=== PATIENT | female | born 1990 | race Hispanic/Latino ===

== ENCOUNTER 2019-09-15 18:52 | Emergency (ER) | payer OTHER, SELFPAY ==
--- NOTE | 2019-09-15 18:58 | ED.URI ---
HPI - URI/Sore Throat General Chief Complaint: Upper Respiratory Infection Stated Complaint: sore throat Time Seen by Provider: 09/15/19 19:06 Source: patient and RN notes reviewed Mode of arrival: ambulatory Limitations: no limitations History of Present Illness HPI Narrative: 29-year-old female presents with concern for sore throat, left ear pain that started on Saturday. She reports a fever on Saturday. Denies cough, nasal congestion, rhinorrhea, body aches, shortness of breath. Reports headache. MD elicited complaint: sore throat Related Data Allergies Allergy/AdvReac Type Severity Reaction Status Date / Time No Known Allergies Allergy Unknown Unverified 09/15/19 19:06 Review of Systems Review of Systems: Narrative: CONSTITUTIONAL: Denies malaise, chills, sweats, or fever. EYES: Denies visual changes, redness, or discharge. ENT: Denies rhinorrhea, congestion, sinus pain, otalgia. Reports sore throat. CARDIOVASCULAR: Denies chest pain, palpitations, or edema. RESPIRATORY: Denies cough or dyspnea. GASTROINTESTINAL: Denies abdominal pain, nausea, vomiting, diarrhea SKIN: Denies rash or itching. MUSCULOSKELETAL: Denies myalgia. NEUROLOGIC: Denies headache. All systems reviewed & are unremarkable except as noted in HPI and below PMFSH Comments At time of signature, agree with nursing past medical, surgical, social and family history. There is no relevant family history pertinent to the presenting complaint Exam Narrative: Exam Narrative: GENERAL: Well-appearing, well-nourished, and in no acute distress. HEAD: Normocephalic EYES: PERRLA, conjunctivae clear ENT: Nares clear, turbinates edematous and erythematous, clear discharge. Mucous membranes moist. TM pearly peña with dull light reflex bilaterally; no tragal tenderness. Oropharynx erythematous without lesions. Tonsils enlarged and without exudate, no drooling, no hoarseness, no trismus, uvula midline. NECK: Supple. No lymphadenopathy CHEST: Clear to auscultation, breath sounds equal. No wheezing, rhonchi, rales, or stridor. No respiratory distress, speaks in full sentences. HEART: Regular rate and rhythm. No murmur heard. SKIN: Warm, dry, no rash. NEURO: Alert and oriented x3. PSYCH: Normal mood and affect Course Course Emergency Course: Patient is aware of diagnosis, understands and agrees to treatment plan. Anticipatory guidance given. Patient agrees to follow-up as directed and is aware of reasons to seek care at the emergency department. Portions of this record may have been created with voice recognition software Vital Signs Vital signs: Vital Signs Temperature 99.6 F 09/15/19 19:03 Pulse Rate 84 09/15/19 19:03 Respiratory Rate 16 09/15/19 19:03 Blood Pressure 117/75 09/15/19 19:03 Pulse Oximetry 100 09/15/19 19:03 Temperature 99.6 F 09/15/19 19:03 Pulse Rate 84 09/15/19 19:03 Respiratory Rate 16 09/15/19 19:03 Blood Pressure 117/75 09/15/19 19:03 Pulse Oximetry 100 09/15/19 19:03 Reviewed. MDM - URI/Sore Throat MDM Narrative Medical decision making narrative: Differential diagnosis considered: Strep pharyngitis, allergic rhinitis, upper respiratory tract infection, sinusitis, rhinosinusitis, nasopharyngitis. viral pharyngitis, otitis media, otitis externa, pneumonia, bronchitis, viral cough syndrome, viral syndrome, and influenza. Exam findings show no acute concerns or changes; patient is non-toxic appearing and is in no distress. Patient is appropriate for outpatient treatment and follow-up. Lab Data Attestation: I reviewed the patient's lab results. Labs: Strep Screen Positive Group A Strep *(Reference Range: Negative)* Critical Care Time Critical Care Time Critical Care Time: No Discharge Plan Discharge Clinical Impression: Acute streptococcal pharyngitis Patient Disposition: Home, Self-Care Condition: Stable Instructions: Antibiotic Form, Strep Throat (ED) Addition
[2019-09-15 19:03] VITALS: BP 117/75; PULSE 84; RESP 16; TEMP 37.6; O2SAT 100
== END 2019-09-15 19:17 | disposition home or self-care (01) ==
PROVIDERS: Emergency Provider Nurse Practitioner
DX: J02.0 Streptococcal pharyngitis (principal)
CPT/HCPCS: 87880; 99213; G0463

== ENCOUNTER 2019-12-28 18:38 | Emergency (ER) | payer MEDICAID, SELFPAY ==
--- NOTE | ~2019-12-28 | XR_ITS ---
EXAMINATION: XR chest 1V portable DATE: 12/28/2019 19:40 INDICATION: Fever. Cough. TECHNIQUE: A single frontal view of the chest was obtained. COMPARISON: CT abdomen and pelvis 07/12/2015 FINDINGS: The chest demonstrates clear lungs without pneumonia, pleural effusion, or pneumothorax. Th e heart size is normal. IMPRESSION: 1. No acute cardiopulmonary disease. Reviewed, dictated and finalized at location A. K FAKER
[2019-12-28 18:49] VITALS: BP 124/87; PULSE 86; RESP 18; TEMP 36.2; O2SAT 99
[2019-12-28 19:12] VITALS: RESP 16; O2SAT 98
--- NOTE | 2019-12-28 19:41 | ED.GENADULT ---
HPI - General Adult General Chief complaint: Fever Stated complaint: fever, headache, body aches Time Seen by Provider: 12/28/19 19:12 Source: patient History of Present Illness HPI narrative: Patient is a 29 y/o female complaining of fever, cough and body ache for last 2 days. She states that her fever was 102 yesterday. She took Ibuprofen, which helps with her fever. She has some headache, nausea and vomiting. She denies any dysuria. She denies any stiffness. Related Data Home Medications Medication Instructions Recorded Confirmed No Home Medications 12/28/19 12/28/19 Allergies Allergy/AdvReac Type Severity Reaction Status Date / Time No Known Allergies Allergy Unknown Verified 12/28/19 18:51 Review of Systems Constitutional: Constitutional: Denies chills, Reports fever(s), Reports headache(s) and Denies weakness Eyes: Eyes: Denies blurry vision ENT: Reports headache(s) and Denies neck pain Cardiovascular: Cardiovascular: Denies chest pain and Denies dyspnea Respiratory: Respiratory: Reports cough and Denies dyspnea Gastrointestinal: Gastrointestinal: Denies abdominal pain, Denies diarrhea, Reports nausea and Reports vomiting Genitourinary: Genitourinary: Denies hematuria and Denies dysuria Musculoskeletal: Musculoskeletal: Denies back pain and Denies neck pain Neurologic: Reports headache(s) and Denies weakness [facility] Social History Social History Gender identity (if verbalized by the patient): Female Exam Const: General: no acute distress and well developed Orientation/consciousness: oriented to person, oriented to place, oriented to time and patient oriented x3 HENMT: Head: normocephalic Ears: external ears normal General nose exam: Normal external nose present Eyes: General: appearance normal, both eyes and all related structures Conjunctivae: conjunctivae normal Neck: Neck: normal visual inspection and full ROM Chest: Chest palpation & inspection: normal inspection of the chest and no tenderness Resp: Effort & Inspection: normal respiratory effort Auscultation: clear to auscultation bilaterally Cardio: Rate: regular rate Rhythm: regular rhythm GI: GI Palp: No abdominal tenderness and Yes Soft to palpation Skin: General skin exam: normal color and turgor normal Neuro: General: oriented to person, oriented to place, oriented to time and patient oriented x3 Cognition (Neuro): normal cognition Extrem: General: normal to inspection, full ROM and no pedal edema Psych: Appearance: grossly normal Mental Status: mental status grossly normal Affect: normal affect Course Vital Signs Vital signs: Vital Signs Temperature 36.2 C L 12/28/19 18:49 Pulse Rate 86 12/28/19 18:49 Respiratory Rate 18 12/28/19 18:49 Blood Pressure 124/87 12/28/19 18:49 Pulse Oximetry 99 12/28/19 18:49 Temperature 36.9 C 12/28/19 22:51 Pulse Rate 76 12/28/19 22:51 Respiratory Rate 18 12/28/19 22:51 Blood Pressure 120/85 12/28/19 22:51 Pulse Oximetry 100 12/28/19 22:51 Medical Decision Making Vital Signs Vital Signs: Vital Signs Temperature 36.2 C L 12/28/19 18:49 Pulse Rate 86 12/28/19 18:49 Respiratory Rate 18 12/28/19 18:49 Blood Pressure 124/87 12/28/19 18:49 Pulse Oximetry 99 12/28/19 18:49 Temperature 36.9 C 12/28/19 22:51 Pulse Rate 76 12/28/19 22:51 Respiratory Rate 18 12/28/19 22:51 Blood Pressure 120/85 12/28/19 22:51 Pulse Oximetry 100 12/28/19 22:51 Lab Data Result diagrams: 12/28/19 22:01 12/28/19 22:01 Labs: Lab Results 12/28/19 12/28/19 12/28/19 Range/Units 20:21 20:21 22:01 WBC (4.5-10.0) K/mm3 RBC (4.2-5.4) M/mm3 Hgb (12.0-15.0) g/dL Hct (37.0-47.0) % MCV (80-100) fl MCH (26-34) pg MCHC (32-36) g/dl RDW (11.5-14.5) % Plt Count (150-375) k/mm3 MPV (7.4-10.4) fl
[2019-12-28 20:34] LABS: Add Urine Microscopic? YES; Appearance Urine Clear (Clear); Bacteria Urine Trace /hpf; Bilirubin Urine Negative (Negative); Blood Urine 1+ (Negative); Color Urine Yellow (Yellow); Glucose Urine UA Negative (Negative); Ketones Urine Trace mg/dL (Negative); Leukocyte Esterase Ur Negative LEU/UL (Negative); Mucus Urine Moderate /lpf; Nitrate Urine Negative (Negative); Protein Urine 1+ mg/dL (Negative); Squamous Epithelial Cell Urine Moderate /hpf (Few); Urobilinogen Urine Negative mg/dL (<2.0); WBC Urine 0-3 /hpf
[2019-12-28] MEDS: SODIUM CHLORIDE 0.9% IV 1,000 ML 999 ML IV CONT (20:34)
[2019-12-28] MEDS: ONDANSETRON INJ 4 MG/2 ML VIAL IV PUSH (20:35)
[2019-12-28 22:11] LABS: Basophils Percent Auto 0.2 % (0.2-1.2); Hematocrit 45.1 % (37.0-47.0); Hemoglobin 15.2 g/dL (12.0-15.0); Immature Granulocyte Absolute 0.01 K/mm3 (0.00-0.031); Immature Granulocyte Percent A 0.2 % (0-0.5); Lymphocytes Absolute Auto 1.95 K/mm3 (0.9-3.2); Lymphocytes Percent Auto 39.6 % (18.3-44.2); Mean Corpuscular HGB Conc 33.7 g/dl (32-36); Mean Corpuscular Hemoglobin 28.7 pg (26-34); Mean Corpuscular Volume 85.1 fl (80-100); Mean Platelet Volume 9.9 fl (7.4-10.4); Monocytes Absolute Auto 0.6 K/mm3 (0.1-0.6); Monocytes Percent Auto 12.8 % (2.6-8.5); Neutrophils Absolute Auto 2.3 K/mm3 (1.3-6.7); Neutrophils Percent Auto 47.2 % (45.5-73.1); Platelet Count Result 247 k/mm3 (150-375); Red Cell Distribution Width 11.9 % (11.5-14.5); White Blood Count 4.9 K/mm3 (4.5-10.0)
[2019-12-28 22:22] LABS: Lactic Acid Reflex 0.9 mmol/L (0.7-2.1)
[2019-12-28 22:27] LABS: Alanine Aminotransferase 34 U/L (4-35); Albumin Level 4.6 g/dL (3.5-5.1); Alkaline Phosphatase 85 U/L (38-126); Anion Gap 10 mmol/L (8-16); Aspartate Amino Transferase 41 U/L (14-36); Bilirubin,Total 0.2 mg/dL (0.2-1.3); Blood Urea Nitrogen 11 mg/dL (7-17); Calcium 9.2 mg/dL (8.4-10.2); Carbon Dioxide 26 mmol/L (22-30); Chloride 103 mmol/L (98-107); Estimated CRCL calculation 111 ml/min; Estimated Glomerular Filt Rate > 60; Glucose 102 mg/dL (65-105); Potassium 3.5 mmol/L (3.4-5.0); Sodium 139 mmol/L (137-145)
[2019-12-28] MEDS: KETOROLAC 30 MG/ML VIAL (*BKC) IV PUSH (22:50)
[2019-12-28] MEDS: diphenhydrAMINE HCl INJ 50 MG/ML VIAL 25 MG IV PUSH (22:50)
[2019-12-28 22:51] VITALS: BP 120/85; PULSE 76; RESP 18; TEMP 36.9; O2SAT 100
[2019-12-30 18:20] LABS: SARS-CoV-2 RNA PCR Positive
== END 2019-12-28 23:07 | disposition home or self-care (01) ==
PROVIDERS: Emergency Provider Emergency Medicine
DX: U07.1 COVID-19 (principal); R50.9 Fever, unspecified; R51.9 Headache, unspecified
CPT/HCPCS: 36415; 71045; 80053; 81001; 81025; 83605; 85025; 87040; 87635; 87804; 96361; 96374; 96375; 99284; C9803; J1200; J1885; J2405; J7030; U0003

== ENCOUNTER 2020-10-29 02:47 | Emergency (ER) | payer OTHER, SELFPAY ==
[2020-10-29] VITALS (9 sets, daily range): BP systolic 90–121; BP diastolic 55–81; PULSE 75–85; RESP 14–24; TEMP 36.6; O2SAT 99–100
--- NOTE | ~2020-10-29 | XR_ITS ---
EXAMINATION: XR chest 2V DATE: 10/29/2020 04:31 INDICATION: Sternal chest pain TECHNIQUE: PA and lateral views of the chest were obtained. COMPARISON: Chest radiograph dated 12/28/2019 FINDINGS: The lungs remain clear with no focal airspace opacities, pulmonary edema, pleural effusion or pneumot horax. The cardiomediastinal silhouette is normal. Visualized bones and soft tissues are unremarkable . IMPRESSION: 1. No acute cardiopulmonary disease. Reviewed, dictated and finalized at location A.
--- NOTE | 2020-10-29 02:48 | ECG_ITS ---
Measurements Intervals [place] Rate: 82 P: 15 FL: 163 QRS: 3 QRSD: 82 T: 8 QT: 350 QTc: 411 Interpretive Statements SINUS RHYTHM BASELINE ARTIFACT- I, II NORMAL ECG Electronically Signed On 10-29-2020 6:36:13 CDT by Moreno Rayo D.O.
[2020-10-29 03:25] LABS: Basophils Percent Auto 0.4 % (0.2-1.2); Eosinophils Absolute Auto 0.1 K/mm3 (0-0.3); Eosinophils Percent Auto 1.4 % (0-4.4); Hematocrit 34.5 % (37.0-47.0); Hemoglobin 11.4 g/dL (12.0-15.0); Immature Granulocyte Absolute 0.07 K/mm3 (0.00-0.031); Immature Granulocyte Percent A 0.7 % (0-0.5); Lymphocytes Absolute Auto 2.89 K/mm3 (0.9-3.2); Mean Corpuscular Hemoglobin 26.6 pg (26-34); Mean Corpuscular Volume 80.4 fl (80-100); Mean Platelet Volume 8.9 fl (7.4-10.4); Monocytes Absolute Auto 1.1 K/mm3 (0.1-0.6); Monocytes Percent Auto 10.9 % (2.6-8.5); Neutrophils Absolute Auto 5.8 K/mm3 (1.3-6.7); Neutrophils Percent Auto 57.6 % (45.5-73.1); Platelet Count Result 322 k/mm3 (150-375); Red Blood Count 4.29 M/mm3 (4.2-5.4); Red Cell Distribution Width 12.3 % (11.5-14.5)
[2020-10-29 03:33] LABS: INR 0.9; Prothrombin Time 11.8 Seconds (11.1-14.7)
[2020-10-29 03:34] LABS: Partial Thromboplastin Time 25.8 SECONDS (22.3-36.8)
[2020-10-29 03:44] LABS: Anion Gap 7 mmol/L (8-16); Blood Urea Nitrogen 7 mg/dL (7-17); Calcium 8.9 mg/dL (8.4-10.2); Carbon Dioxide 17 mmol/L (22-30); Chloride 109 mmol/L (98-107); Estimated CRCL calculation 166 ml/min; Estimated Glomerular Filt Rate > 60; Glucose 109 mg/dL (65-110); Potassium 3.7 mmol/L (3.4-5.0); Sodium 133 mmol/L (137-145)
[2020-10-29 03:54] LABS: Troponin I < 0.012 ng/mL (0.000-0.034)
--- NOTE | 2020-10-29 04:07 | PC.NURSE ---
Pt is painfree at present. Remains SR without ectopy. Offered and given blanket. Updated on pending labs. Denies further needs at present.
--- NOTE | 2020-10-29 04:45 | ED.CHESTPAIN ---
HPI - Chest Pain General Chief Complaint: Chest Pain Stated Complaint: chest pain Time Seen by Provider: 10/29/20 04:16 History of Present Illness HPI narrative: Patient presents with sternal chest pain. Patient reports chest pain woke her up from sleep just prior to arrival and has been gradually improving. She was concerned given the initial severity of her pain so she came in for evaluation. She reports chest pain was associated with shortness of breath she denies any lightheadedness or dizziness she denies any abdominal pain nausea or vomiting. She denies any significant family history of cardiac disease. She denies prior history of blood clots Related Data Home Medications Medication Instructions Recorded Confirmed No Home Medications 10/29/20 10/29/20 Allergies Allergy/AdvReac Type Severity Reaction Status Date / Time No Known Allergies Allergy Unknown Verified 10/29/20 02:57 Review of Systems Review of Systems: CONSTITUTIONAL: Denies fever, chills, or sweats. EYES: Denies visual changes, redness, or discharge. ENT: Denies rhinorrhea, congestion, sore throat, or otalgia. CARDIOVASCULAR: Denies palpitations, or edema. RESPIRATORY: Denies cough GASTROINTESTINAL: Denies abdominal pain, nausea, vomiting, or diarrhea. GENITOURINARY: Denies dysuria or hematuria. SKIN: Denies rash or itching. MUSCULOSKELETAL: Denies back pain, joint pain, or myalgia. NEUROLOGIC: Denies headache, numbness, dizziness, or weakness. PSYCHIATRIC: Denies anxiety or depression. All systems reviewed & are unremarkable except as noted in HPI and below PMFSH Social History Social History Gender identity (if verbalized by the patient): Female Exam Narrative: GENERAL: Well-appearing, well-nourished, and in no acute distress. HEAD: Normocephalic, atraumatic. EYES: PERRLA and EOMI. ENT: Nares clear, no rhinorrhea or epistaxis. Mucous membranes moist. NECK: Supple. No masses. No JVD CHEST: Clear to auscultation. No respiratory distress. No wheezes rales or rhonchi HEART: Regular rate and rhythm. No murmur heard. Normal peripheral pulses. ABDOMEN: Soft, nontender, nondistended, normal active bowel sounds. EXTREMITIES: Normal range of motion. No edema. SKIN: Warm, dry, no rash. NEURO: No focal deficits. Alert and oriented x3. PSYCH: Normal mood and affect. Course Reevaluation(s) Reevaluation #1: Patient reports feeling improved. Date: 10/29/20 Time: 04:46 Vital Signs Vital signs: Vital Signs Temperature 36.6 C 10/29/20 02:52 Pulse Rate 81 10/29/20 02:52 Respiratory Rate 18 10/29/20 02:52 Blood Pressure 121/81 10/29/20 02:52 Pulse Oximetry 100 10/29/20 02:52 Temperature 36.6 C 10/29/20 02:52 Pulse Rate 75 10/29/20 06:17 Respiratory Rate 19 10/29/20 06:17 Blood Pressure 101/67 10/29/20 06:17 Pulse Oximetry 100 10/29/20 06:17 MDM - Chest Pain MDM Narrative Medical decision making narrative: H&P as above, vss, pt looks clinically well, exam was reassuring patient symptoms had resolved at the time of my evaluation, labs unremarkable to include delta troponin, img unremarkable, additional labs/img considered. symptomatic relief available as needed, on reevaluation pt continues to looks clinically well. Symptoms remain of unclear etiology primary concern is for chest wall pain. Patient's delta troponin was negative and has no risk factors for ACS. There is low concern for PE as patient's symptoms resolved without intervention there is no tachycardia hypoxia or tachypnea throughout her ER stay. Low concern for dissection, pneumothorax, hemothorax. With negative work-up and resolution of symptoms plan to tx/monitor as op w/ pcm f/u findings/plan discussed with pt, pt agree/comfortable with plan, return precautions given Lab Data Result diagrams: 10/29/20 03:04 10/29/20 03:04 Labs: Lab Results 10/29/20
[2020-10-29] MEDS: SODIUM CHLORIDE 0.9% IV 1,000 ML 999 ML IV CONT (05:34)
--- NOTE | 2020-10-29 06:07 | PC.NURSE ---
Preparing to draw 3 hour troponin. Pt remains painfree and states is feeling better. Has been up to urinate x2.
[2020-10-29 06:42] LABS: Troponin I < 0.012 ng/mL (0.000-0.034)
--- NOTE | 2020-10-29 07:03 | PC.NURSE ---
Pt remains painfree. Awaiting d/c instructions. Report to GARETT Barton, to continue care.
== END 2020-10-29 07:33 | disposition home or self-care (01) ==
PROVIDERS: Emergency Provider Emergency Medicine
DX: R07.89 Other chest pain (principal)
CPT/HCPCS: 36415; 71046; 80048; 84484; 85025; 85610; 85730; 93005; 96360; 99284; J7030

== ENCOUNTER 2021-01-16 09:45 | Emergency (ER) | payer OTHER, SELFPAY ==
[2021-01-16 09:54] VITALS: BP 109/64; PULSE 75; RESP 18; TEMP 36.1; O2SAT 99
--- NOTE | 2021-01-16 10:01 | ED.GENADULT ---
HPI - General Adult General Chief complaint: Unspecified Stated complaint: Left Breast Pain Time Seen by Provider: 01/16/21 10:03 Source: patient and RN notes reviewed History of Present Illness HPI narrative: 30-year-old female who just gave presents to the [facility] with left breast pain, warm. Patient is currently breast-feeding. States that baby is still able to feed on that side however it is very painful. Had not contacted Labor and Delivery nor her [employer] provider. Denies any fevers. No chest pain. No nausea vomiting diarrhea. Related Data Allergies Allergy/AdvReac Type Severity Reaction Status Date / Time No Known Allergies Allergy Unknown Verified 01/16/21 09:56 Review of Systems Review of Systems: All systems reviewed & are unremarkable except as noted in HPI and below Constitutional: Constitutional: Reports no additional constitutional complaints Eyes: Eyes: Reports no additional eye complaints ENT: Reports system reviewed and no additional complaints, except as documented Cardiovascular: Cardiovascular: Reports no additional cardiovascular complaints Respiratory: Respiratory: Reports no additional respiratory complaints Gastrointestinal: Gastrointestinal: Reports no additional gastrointestinal complaints Musculoskeletal: Musculoskeletal: Reports no additional musculoskeletal complaints Integumentary/Breasts: Skin/Breast: Reports as per HPI and Reports breast pain (Redness warmth to the lateral aspect left breast) Neurologic: Reports system reviewed and no additional complaints, except as documented Psychiatric: Psychiatric: Reports no additional psychiatric complaints Endocrine: Endocrine: Reports no additional endocrine complaints Allergic/Immunologic: Allergic/Immunologic: Reports no additional allergic/immunologic complaints [facility] Past Medical History Medical History No significant medical problems Surgical History Surgical History (Updated 01/17/21 @ 14:33 by Erin Godoy) No significant past surgical history Social History Social History (Updated 01/17/21 @ 14:33 by Erin Godoy) Living arrangements: with family Gender identity (if verbalized by the patient): Female Comments At the time of my signature, I reviewed and agree with the nursing past medical, surgical, social, and family history. There is no relevant family history pertinent to the patient complaint. Exam Const: General: cooperative, healthy appearing, no acute distress, well developed and alert Nutritional Appearance: average body habitus HENMT: Head: normal to inspection Ears: hearing grossly normal bilaterally and external ears normal Eyes: General: appearance normal, both eyes and all related structures Neck: Neck: normal visual inspection, full ROM and no lymphadenopathy Chest: Chest/axillae images: 1. Redness, tenderness with increased warmth Resp: Effort & Inspection: normal respiratory effort and able to speak in complete sentences Auscultation: clear to auscultation bilaterally Back/Spine/Pelvis: Back: no CVA tenderness Skin: General skin exam: normal color and no rashes or lesions noted Neuro: General: patient oriented x3 Extrem: General: normal to inspection, full ROM and capillary refill normal Psych: Appearance: grossly normal and well kempt Mental Status: mental status grossly normal Speech and movement: Normal speech and movement present Affect: normal affect Attitude: cooperative Course Course Emergency Course: Discharge instructions reviewed with patient, as well as provided in writing per nursing staff. The instructions also include specific and strict return/GO TO THE ER as well as f/u information. All questions have been answered, and the patient deny any further questions with discharge and discharge plan. Vital Signs Vital signs: Vital Signs Temperature 96.9 F L 01/16/21 09:54 Pulse Rate 75 01/16/
== END 2021-01-16 10:21 | disposition home or self-care (01) ==
PROVIDERS: Emergency Provider Nurse Practitioner
DX: N64.4 Mastodynia (principal)
CPT/HCPCS: 99213; G0463

== ENCOUNTER 2022-03-30 09:35 | Emergency (ER) | payer OTHER, SELFPAY ==
[2022-03-30 09:44] VITALS: BP 107/66; PULSE 63; RESP 16; TEMP 35.9; O2SAT 99
--- NOTE | 2022-03-30 09:46 | ED.SKABFB ---
HPI - Skin/Abscess/Foreign Bdy General Chief complaint: Skin/Abscess/Foreign Body Stated complaint: right thumb infected Time Seen by Provider: 03/30/22 09:47 Source: patient and RN notes reviewed Mode of arrival: ambulatory Limitations: no limitations History of Present Illness HPI narrative: 31-year-old female presents concern for tenderness, swelling, drainage near the nail bed of the 1st digit of her right hand. Reports yesterday she pulled a hangnail before the symptoms started. She reports she got a small amount of drainage. Denies fever, red streaking, decreased sensation or range of motion. complaint: other (Paronychia) Related Data Allergies Allergy/AdvReac Type Severity Reaction Status Date / Time No Known Allergies Allergy Unknown Verified 03/30/22 09:39 Review of Systems Review of Systems: CONSTITUTIONAL: Denies malaise, chills, sweats, or fever. CARDIOVASCULAR: Denies chest pain, palpitations, or edema. RESPIRATORY: Denies cough or dyspnea. SKIN: Reports redness, tenderness, drainage near the nail bed of the 1st digit of the right hand MUSCULOSKELETAL: Denies muscle skeletal pain, decreased sensation, range of motion All systems reviewed & are unremarkable except as noted in HPI and below PMFSH Past Medical History Medical History No significant medical problems Surgical History Surgical History (Updated 01/17/21 @ 14:33 by Erin Godoy APRN) No significant past surgical history Social History Social History (Updated 01/17/21 @ 14:33 by Erin Godoy APRN) Living arrangements: with family Gender identity (if verbalized by the patient): Female Comments At time of signature, agree with nursing past medical, surgical, social and family history. There is no relevant family history pertinent to the presenting complaint Exam Narrative: GENERAL: Well-appearing, well-nourished, and in no acute distress. HEAD: Normocephalic, atraumatic. EYES: PERRLA, conjunctivae clear ENT: Mucous membranes moist. NECK: Supple. No lymphadenopathy CHEST: Clear to auscultation. No respiratory distress. HEART: Regular rate and rhythm. SKIN: Warm, dry. Erythema, very mild edema and tenderness noted at the lateral corner of the nail bed of the 1st digit of the right hand without fluctuation or drainage noted NEURO: Alert and oriented x3. PSYCH: Normal mood and affect Course Course Emergency Course: Patient is aware of diagnosis, understands and agrees to treatment plan. Anticipatory guidance given. Patient agrees to follow-up as directed and is aware of reasons to seek care at the emergency department. Portions of this record may have been created with voice recognition software Level of Care: Express Care Visit Vital Signs Vital signs: Vital Signs Temperature 96.7 F L 03/30/22 09:44 Pulse Rate 63 03/30/22 09:44 Respiratory Rate 16 03/30/22 09:44 Blood Pressure 107/66 03/30/22 09:44 Pulse Oximetry 99 03/30/22 09:44 Oxygen Delivery Room Air 03/30/22 09:44 Temperature 96.7 F L 03/30/22 09:44 Pulse Rate 63 03/30/22 09:44 Respiratory Rate 16 03/30/22 09:44 Blood Pressure 107/66 03/30/22 09:44 Pulse Oximetry 99 03/30/22 09:44 Oxygen Delivery Room Air 03/30/22 09:44 Reviewed. MDM - Skin/Abscess/Foreign Bdy MDM Narrative Medical decision making narrative: Exam findings show no acute concerns or changes; patient is non-toxic appearing and is in no distress. Patient is appropriate for outpatient treatment and follow-up. Critical Care Time Critical Care Time Critical Care Time: No Discharge Plan Discharge Clinical Impression: Paronychia Patient Disposition: Home, Self-Care Condition: Stable Instructions: Antibiotic Form, Paronychia (ED) Additional Instructions: Soak your nail: Soak your nail in a mixture of equal parts vinegar and water 3 or 4 times each day. This will help decrease inflamma
== END 2022-03-30 09:56 | disposition home or self-care (01) ==
PROVIDERS: Emergency Provider Nurse Practitioner; PCP Physician Assistant
DX: L03.011 Cellulitis of right finger (principal)
CPT/HCPCS: 99213; G0463